=== PATIENT | male | born 1965 | race Caucasian/White ===

== ENCOUNTER 2024-05-17 11:45 | Inpatient (IN) | payer MEDICAID ==
[~2024-05-17] VITALS: Ht 167.6 cm; Wt 81.3 kg
[2024-05-17 11:47] VITALS: O2SAT 98
[2024-05-17] MEDS: SODIUM CHLORIDE 0.9% 1,000 ML IV ONE (12:05)
[2024-05-17 12:25] LABS: EOSINOPHILS % 0.3 % (0.0-5.0); HEMATOCRIT. 36.4 % (42.0-52.0); HEMOGLOBIN. 11.8 g/dL (14.0-18.0); LYMPHOCYTES % 19.8 % (20.0-50.0); MEAN CORPUSCULAR HEMOGLOBIN 32.1 pg (28.0-32.0); MEAN CORPUSCULAR HGB CONC 32.4 g/dL (31.0-37.0); MEAN PLATELET VOLUME 7.5 fl (7.4-10.4); MONOCYTES % 12.2 % (2.0-8.0); NEUTROPHILS % 66.7 % (40.0-76.0); PLATELET 151 x1000/uL (130-400); RED BLOOD CELL COUNT 3.68 mill/uL (4.7-6.1); RED CELL DISTRIBUTION WIDTH 15.5 % (11.6-14.6)
[2024-05-17 12:33] LABS: CHLORIDE 105 mEq/L (98-107); POTASSIUM 3.9 mEq/L (3.5-5.1); SODIUM 138 mEq/L (136-145)
[2024-05-17 12:34] LABS: CARBON DIOXIDE 22 mEq/L (21-32)
[2024-05-17 12:35] LABS: PROTHROMBIN TIME 10.9 sec (9.6-11.0)
[2024-05-17 12:39] LABS: CREATININE 0.7 mg/dL (0.6-1.3); GLUCOSE 107 mg/dL (70-105)
[2024-05-17 12:40] LABS: ETHANOL BLOOD 178 mg/dL (<10); TROPONIN I HIGH SENSITIVITY 5 ng/L (3.0-53)
[2024-05-17 12:41] LABS: UREA NITROGEN BLOOD < 5 mg/dL (9-23)
[2024-05-17] MEDS: LORAZEPAM 2MG/ML INJ IV ONE (12:50)
[2024-05-17 18:28] LABS: ALANINE AMINOTRANSFERASE 45 IU/L (10-49); ALBUMIN 4.3 g/dL (3.2-4.8); ASPARTATE AMINOTRANSFERASE 65 IU/L (<34); BILIRUBIN DIRECT 0.1 mg/dL (<=3.0); BILIRUBIN TOTAL 0.4 mg/dL (0.1-1.0); PROTEIN TOTAL 7.4 g/dL (6.0-8.3)
[2024-05-17] MEDS ORDERED: IPRATROPIUM/ALBUTEROL 0.5-3(2.5)MG/3ML NEB HHN PRN (18:30)
[2024-05-17] MEDS ORDERED: ACETAMINOPHEN 325MG TABLET PO PRN (18:30)
[2024-05-17] MEDS ORDERED: MAGNESIUM/ALUMINUM HYDROXIDE/SIMETHICONE 30ML UDC PO PRN (18:30)
[2024-05-17] MEDS ORDERED: ONDANSETRON HCL 4MG/2ML INJ IV PRN (18:30)
[2024-05-17] MEDS: CLONIDINE 0.1MG TABLET PO PRN (18:44)
[2024-05-17] MEDS: LORAZEPAM 2MG/ML INJ IV PRN (18:49)
[2024-05-17] MEDS ORDERED: PHENOBARBITAL 30 MG TABLET PO PRN (19:00)
[2024-05-17] MEDS: PANTOPRAZOLE SODIUM 40 MG/VIAL IV SCH (19:51)
[2024-05-17] MEDS: MVI, ADULT NO.1 10 ML, FOLIC ACID 1 MG, THIAMINE HCL 100 MG in SODIUM CHLORIDE 0.9% 1,0... IV SCH (20:08)
[2024-05-17 20:48] LABS: PHOSPHORUS 4.1 mg/dL (2.5-4.9)
[2024-05-17 20:51] LABS: FOLIC ACID (FOLATE) SERUM 19.68 ng/mL (>5.38); VITAMIN B12 SERUM 439 pg/mL (211-911)
[2024-05-17 22:30] VITALS: BP 189/105; PULSE 90; RESP 20; TEMP 37.1408
[2024-05-17] MEDS: HYDRALAZINE 20MG/ML VIAL IV NR (22:58)
[2024-05-17] MEDS: LOSARTAN 50 MG TABLET PO SCH (23:02)
[2024-05-18] VITALS: BP 178/93; PULSE 112; RESP 20; TEMP 36.9474; O2SAT 99
[2024-05-18 06:43] LABS: CARBON DIOXIDE 23 mEq/L (21-32); CHLORIDE 104 mEq/L (98-107); POTASSIUM 3.8 mEq/L (3.5-5.1); SODIUM 137 mEq/L (136-145)
[2024-05-18 06:44] LABS: CALCIUM 9.5 mg/dL (8.7-10.4)
[2024-05-18 06:48] LABS: CREATININE 0.7 mg/dL (0.6-1.3)
[2024-05-18 06:49] LABS: GLUCOSE 99 mg/dL (70-105); TRIGLYCERIDE 51 mg/dL (0-150); UREA NITROGEN BLOOD 5 mg/dL (9-23)
[2024-05-18 06:50] LABS: LDL CHOLESTEROL 93 mg/dL (5-100)
[2024-05-18 06:51] LABS: CHOLESTEROL 185 mg/dL (<200); CREATINE KINASE MB FRACTION 0.6 ng/mL (0.5-3.6); HDL CHOLESTEROL 82 mg/dL (>55)
[2024-05-18 06:56] LABS: THYROID STIMULATING HORMONE 2.54 uIU/mL (0.55-4.78)
[2024-05-18 07:31] LABS: BASOPHILS % 0.7 % (0.0-2.0); HEMATOCRIT. 36.7 % (42.0-52.0); HEMOGLOBIN. 12.1 g/dL (14.0-18.0); LYMPHOCYTES % 8.2 % (20.0-50.0); MEAN CORPUSCULAR HEMOGLOBIN 32.3 pg (28.0-32.0); MEAN PLATELET VOLUME 8.5 fl (7.4-10.4); MONOCYTES % 13.5 % (2.0-8.0); NEUTROPHILS % 77.6 % (40.0-76.0); PLATELET 155 x1000/uL (130-400); RED BLOOD CELL COUNT 3.75 mill/uL (4.7-6.1); RED CELL DISTRIBUTION WIDTH 15.5 % (11.6-14.6); WHITE BLOOD COUNT 5.2 x1000/uL (4.5-11.0)
[2024-05-18 08:00] VITALS: BP 176/90; PULSE 97; RESP 18; TEMP 36.33624; O2SAT 97
[2024-05-18] MEDS: MULTIVITAMINS,THER W-MINERALS TABLET PO SCH (08:42)
[2024-05-18] MEDS: THIAMINE HCL 100MG TABLET PO SCH (08:42)
[2024-05-18] MEDS: FOLIC ACID 1MG TABLET PO SCH (08:43)
[2024-05-18] MEDS: CLONIDINE 0.1MG TABLET PO SCH (08:43)
[2024-05-18 11:45] LABS: CREATINE KINASE MB FRACTION 0.7 ng/mL (0.5-3.6)
[2024-05-18 12:00] VITALS: BP 173/91; PULSE 77; RESP 19; TEMP 36.61404; O2SAT 97
[2024-05-18 16:00] VITALS: BP 147/86; PULSE 84; RESP 19; TEMP 36.50292; O2SAT 96
[2024-05-18] MEDS: AMLODIPINE 10MG TABLET PO SCH (16:30)
[2024-05-18] MEDS: LORAZEPAM 2MG/ML INJ IV PRN (16:30)
[2024-05-18 20:00] VITALS: BP 162/108; PULSE 144; RESP 22; TEMP 37.2252; O2SAT 95
[2024-05-18] MEDS ORDERED: TERAZOSIN HCL 5MG CAPSULE PO SCH (21:00)
[2024-05-18] MEDS: HYDRALAZINE HCL 50MG TABLET PO SCH (21:42)
[2024-05-18] MEDS: LOSARTAN 50 MG TABLET PO SCH (21:42)
[2024-05-19] VITALS: BP 149/79; PULSE 89; RESP 19; TEMP 36.78072; O2SAT 95
[2024-05-19 04:00] VITALS: BP 159/86; PULSE 116; RESP 19; TEMP 37.503; O2SAT 95
[2024-05-19 06:10] LABS: BASOPHILS % 0.4 % (0.0-2.0); EOSINOPHILS % 0.1 % (0.0-5.0); HEMATOCRIT. 36.6 % (42.0-52.0); MEAN CORPUSCULAR HEMOGLOBIN 32.2 pg (28.0-32.0); MEAN CORPUSCULAR HGB CONC 32.9 g/dL (31.0-37.0); MEAN CORPUSCULAR VOLUME 97.9 fL (80.0-94.0); MEAN PLATELET VOLUME 8.6 fl (7.4-10.4); MONOCYTES % 11.7 % (2.0-8.0); NEUTROPHILS % 78.8 % (40.0-76.0); PLATELET 151 x1000/uL (130-400); RED BLOOD CELL COUNT 3.74 mill/uL (4.7-6.1); RED CELL DISTRIBUTION WIDTH 15.4 % (11.6-14.6); WHITE BLOOD COUNT 6.2 x1000/uL (4.5-11.0)
[2024-05-19 08:00] VITALS: BP 146/78; PULSE 104; RESP 15; TEMP 36.33624; O2SAT 97
[2024-05-19 12:00] VITALS: BP 103/58; PULSE 78; RESP 17; TEMP 36.28068; O2SAT 97
[2024-05-19] MEDS ORDERED: AMLO10TA80 PO (14:05)
[2024-05-19] MEDS ORDERED: THIA100T88 MT (14:05)
[2024-05-19] MEDS ORDERED: FOLI-43 MT (14:05)
[2024-05-19] MEDS ORDERED: MULT-1146 MT (14:05)
[2024-05-19] MEDS ORDERED: LOSA100T33 MT (14:05)
[2024-05-19 16:00] VITALS: BP 103/57; PULSE 86; RESP 18; TEMP 37.11408; O2SAT 98
[2024-05-20] MEDS ORDERED: FAMOTIDINE 20MG/2ML VIAL IV SCH (09:00)
== END 2024-05-19 18:00 | disposition home or self-care (01) | DRG 207 ==
LOC: ER 11:57 → 5WST 15:38 → EDBEDREQTM 15:46 → EDBEDREQ 15:46 → 7EST 22:02
PROVIDERS: ADMIT Internal Medicine; ATTEND Internal Medicine
DX: I95.2 Hypotension due to drugs (principal); G92.8 Other toxic encephalopathy; I16.1 Hypertensive emergency; D53.9 Nutritional anemia, unspecified; F10.129 Alcohol abuse with intoxication, unspecified; E87.6 Hypokalemia; Y90.6 Blood alcohol level of 120-199 mg/100 ml; E78.5 Hyperlipidemia, unspecified; F10.139 Alcohol abuse with withdrawal, unspecified; I10 Essential (primary) hypertension; R74.01 Elevation of levels of liver transaminase levels; R74.8 Abnormal levels of other serum enzymes; T50.995A Adverse effect of other drugs, medicaments and biological substances, initial encounter; Z78.1 Physical restraint status; Z79.899 Other long term (current) drug therapy; Y92.89 Other specified places as the place of occurrence of the external cause
CPT/HCPCS: 36415; 71045; 80048; 80061; 80076; 80320; 82550; 82553; 82607; 82746; 82962; 83735; 83880; 84100; 84145; 84443; 84484; 85025; 99291; C1893; J0360; J2060; J2470; J3411; J3490; J7030; G0480

== ENCOUNTER 2024-07-05 15:57 | Emergency (ER) | payer MEDICAID ==
[~2024-07-05] VITALS: Ht 175.3 cm; Wt 95.0 kg
[~2024-07-05 15:57] MED LIST: AMLO10TA80 PO; FOLI-43 MT; LOSA100T33 MT; MULT-1146 MT; THIA100T88 MT
[2024-07-05 16:01] VITALS: O2SAT 96
[2024-07-05 16:36] LABS: BASOPHILS % 0.7 % (0.0-2.0); EOSINOPHILS % 2.8 % (0.0-5.0); HEMATOCRIT. 34.4 % (42.0-52.0); HEMOGLOBIN. 11.8 g/dL (14.0-18.0); LYMPHOCYTES % 35.4 % (20.0-50.0); MEAN CORPUSCULAR HEMOGLOBIN 32.5 pg (28.0-32.0); MEAN CORPUSCULAR HGB CONC 34.4 g/dL (31.0-37.0); MEAN CORPUSCULAR VOLUME 94.5 fL (80.0-94.0); MEAN PLATELET VOLUME 8.3 fl (7.4-10.4); MONOCYTES % 9.3 % (2.0-8.0); NEUTROPHILS % 51.8 % (40.0-76.0); PLATELET 261 x1000/uL (130-400); RED BLOOD CELL COUNT 3.64 mill/uL (4.7-6.1); RED CELL DISTRIBUTION WIDTH 13.4 % (11.6-14.6); WHITE BLOOD COUNT 7.4 x1000/uL (4.5-11.0)
[2024-07-05 16:42] LABS: CHLORIDE 106 mEq/L (98-107); POTASSIUM 4.1 mEq/L (3.5-5.1); SODIUM 138 mEq/L (136-145)
[2024-07-05 16:43] LABS: CARBON DIOXIDE 25 mEq/L (21-32)
[2024-07-05 16:44] LABS: CALCIUM 9.8 mg/dL (8.7-10.4)
[2024-07-05 16:47] LABS: INR 0.9; PARTIAL THROMBOPLASTIN TIME 24.7 sec (23.4-31.0); PROTHROMBIN TIME 10.6 sec (9.6-11.0)
[2024-07-05 16:48] LABS: CREATININE 0.8 mg/dL (0.6-1.3); GLUCOSE 100 mg/dL (70-105); UREA NITROGEN BLOOD 10 mg/dL (9-23)
[2024-07-05 16:54] LABS: TROPONIN I HIGH SENSITIVITY 9 ng/L (3.0-53)
[2024-07-05 16:56] LABS: PHOSPHORUS 4.4 mg/dL (2.5-4.9)
[2024-07-05 17:32] LABS: CLARITY URINE CLEAR (CLEAR); COLOR URINE YELLOW (YELLOW); GLUCOSE URINE NEGATIVE (NEGATIVE); KETONES URINE NEGATIVE (NEGATIVE); LEUKOCYTE ESTERASE URINE NEGATIVE (NEGATIVE); NITRITE URINE NEGATIVE (NEGATIVE); OCCULT BLOOD URINE NEGATIVE (NEGATIVE); PROTEIN URINE NEGATIVE (NEGATIVE); SPECIFIC GRAVITY URINE 1.019 (1.005-1.030); UROBILINOGEN URINE 0.2 E.U./dL (0.2-1.0)
[2024-07-05 18:27] VITALS: TEMP 36.72516
[2024-07-05 19:52] LABS: TROPONIN I HIGH SENSITIVITY 9 ng/L (3.0-53)
[2024-07-05 20:21] VITALS: BP 127/85; PULSE 72; RESP 12; O2SAT 98
== END 2024-07-05 20:31 | disposition home or self-care (01) ==
LOC: ER 15:57
DX: R42 Dizziness and giddiness (principal); E11.9 Type 2 diabetes mellitus without complications; I10 Essential (primary) hypertension; Z79.899 Other long term (current) drug therapy
CPT/HCPCS: 80048; 81003; 83880; 83735; 84100; 85025; 85610; 85730; 84484; 36415; 71045; 70450; 93005; 99285; Z7610 ×3